=== PATIENT | male | born 1985 | race Caucasian/White ===

== ENCOUNTER 2016-07-02 15:50 | Emergency (ER) | payer BC ==
[2016-07-02 16:09] VITALS: BP 163/86
[2016-07-02] MEDS ORDERED: Ketorolac 60 MG/2 ML SDV IM ONE (16:44)
--- NOTE | 2016-07-02 16:50 | EDM.PDOC ---
ED HPI Trauma - General Chief Complaint: Upper Extremity Injury/Pain Stated Complaint: ARM Time Seen by Provider: 07/02/16 16:30 Source: Reports: Patient History Limitations: Reports: No limitations - History of Present Illness INITIAL COMMENTS - FREE TEXT/NARRATIVE: HISTORY AND PHYSICAL: History of present illness: [Patient comes to the emergency room complaining of right elbow pain that he's had for the past 4 years. He has not yet established care with a local primary care provider. Last week he was using some equipment around the house and he felt like his right elbow pain worsened. He heard a popping sensation in his right elbow. He has continued to use his arm without any difficulty. He complains of increased pain radiating into his upper arm and down into his fingers. He occasionally feels numbness and tingling as well. He has occasionally taken some Tylenol and ibuprofen but has not done so consistently.] Review of systems: As per history of present illness and below otherwise all systems reviewed and negative. Past medical history: As per history of present illness and as reviewed below otherwise noncontributory. Surgical history: As per history of present illness and as reviewed below otherwise noncontributory. Social history: No reported history of drug or alcohol abuse. Family history: As per history of present illness and as reviewed below otherwise noncontributory. Physical exam: HEENT: Atraumatic, normocephalic. Extremities: Atraumatic in appearance. Positive Tinel's and positive Phalen's. Is tender with palpation over the lateral and medial aspect of his right elbow. No gross deformities noted. 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 Neurovascular unremarkable. Vick refill less than 2 seconds. Neuro: Awake, alert, oriented. Cranial nerves II through XII unremarkable. Motor and sensory unremarkable throughout. Exam nonfocal. Impression: [Right elbow pain] Plan: [Lab patient start Diclofenac 50 mg #30 sig one by mouth 3 times a day zero refills, take with food. recommend Tylenol 2 tabs every 4-6 hours as needed for pain. It is imperative that you establish care with a local primary care provider. Stressed with him the followup with primary care is important to help diagnose his elbow pain and hand weakness. All questions are answered and concerns are addressed. Patient verbalized understanding of today's plan] Definitive disposition and diagnosis as appropriate pending reevaluation and review of above. Allergies/ADRs: Allergies No Known Allergies Allergy (Verified 07/02/16 16:05) Home Medications: Ambulatory Orders . [No Known Home Meds] 07/02/16 [Confirmed 07/02/16] Past Medical History Oncologic (Cancer) History: Reports: Leukemia, Other (see below) Other Oncologic History: ALL - Infectious Disease History Infectious Disease History: Reports: Chicken pox - Past Surgical History Musculoskeletal Surgical History: Reports: Other (see below) Other Musculoskeletal Surgeries/Procedures:: Right fibula fracture with marielena Social & Family History - Family History Family Medical History: Noncontributory - Tobacco Use Smoking Status *Q: Never Smoker - Caffeine Use Caffeine Use: Reports: Coffee - Recreational Drug Use Recreational Drug Use: No Review of Systems - Review of Systems Review Of Systems: ROS reveals no pertinent complaints other than HPI. Trauma Exam - Physical Exam Exam: See Below Course - Vital Signs Last Recorded V/S: Last Vital Signs Temp 98.5 F 07/02/16 16:02 Pulse 96 07/02/16 16:02 Resp 16 07/02/16 16:02 BP 163/86 H 07/02/16 16:02 Pulse Ox 96 07/02/16 16:02 - Orders/Labs/Meds Meds: Medications Discontinued Medications Generic Name Dose Route Start Last Admin Trade Name Mateoq PRN Reason Stop Dose Admin Ketorolac Tromethamine 60 mg 07/02/16 16:44 07/02/16 17:06 Toradol IM 07/02/16 16:45 60 mg ONETIME ONE Administration Departure - Departure Time of Disposition: 17:00 Disposition: Home, Self-Care 01 Condition: good Clinical Impression: Arm pain Qualifiers: Laterality: right Qualified Code(s): M79.601 - Pain in right arm Instructions: Shoulder Pain, Elbow Contusion Referrals: PCP,None [Primary Care Provider] - Forms: ED Department Discharge Additional Instructions: The following information is given to patients seen in the emergency department who are being discharged to home. This information is to outline your options for follow-up care. We provide all patients seen in our emergency department with a follow-up referral. The need for follow-up, as well as the timing and circumstances, are variable depending upon the specifics of your emergency department visit. If you don't have a primary care physician on staff, we will provide you with a referral. We always advise you to contact your personal physician following an emergency department visit to inform them of the circumstance of the visit and for follow-up with them and/or the need for any referrals to a consulting specialist. The emergency department will also refer you to a specialist when appropriate. This referral assures that you have the opportunity for follow-up care with a specialist. All of these measure are taken in an effort to provide you with optimal care, which includes your follow-up. Under all circumstances we always encourage you to contact your private physician who remains a resource for coordinating your care. When calling for follow-up care, please make the office aware that this follow-up is from your recent emergency room visit. If for any reason you are refused follow-up, please contact the [facility] emergency department at and asked to speak to the emergency department charge nurse. [facility] [address] [place] [id number] Establish care with a local primary care provider at the clinic listed above. Please schedule an appointment, please make sure that they know you were evaluated in the ER for arm pain and you require followup. Take diclofenac regularly 3 times daily with food. May take Tylenol in between diclofenac doses. Return to ER as needed and as discussed.
== END 2016-07-02 17:23 | disposition home or self-care (01) ==
LOC: MW.ED 15:50
DX: M25.521 Pain in right elbow (principal); R20.2 Paresthesia of skin; R20.0 Anesthesia of skin
CPT/HCPCS: 96372; 99283; J1885